=== PATIENT | male | born 1985 | race Caucasian/White ===

== ENCOUNTER 2016-11-26 11:42 | Emergency (ER) | payer OTHER ==
--- NOTE | 2016-11-26 12:06 | CPEKG ---
Heart Rate: 51 RR Interval: 1176 P-R Interval: 128 QRSD Interval: 102 QT Interval: 444 QTC Interval: 409 P [place]: 17 QRS [place]: 49 T Wave [place]: 46 EKG Severity - NORMAL ECG - EKG Impression: SINUS RHYTHM Electronically Signed By: Elder Domingo 26-Nov-2016 13:41:54
--- NOTE | 2016-11-26 12:38 | EDPHY ---
H & P Stated Complaint: HPI/ROS: CHIEF COMPLAINT: Chest pain HISTORY OF PRESENT ILLNESS: Patient complains of sudden onset of chest pain 1 hour prior to arrival. He was at work sitting at his desk. At 1st was on the right side now the left side. It is mild to moderate. No worse with exertion. Does not radiate. No nausea, vomiting, diaphoresis or shortness of breath. He very shortly after began to feel pain and spasms of the hands. He still has some pain and tingling of the left hand. No abdominal complaints. No recent travel or surgery. No history of venous thrombolic event. Nonsmoker. Does not take testosterone. Has no erythema edema or pain of the upper or lower extremities. No bleeding disorders or history of VT in the family. No other associated complaints or modifying factors. REVIEW OF SYSTEMS: Ten systems reviewed and are negative unless otherwise noted in the HPI PAST MEDICAL HISTORY: Denies any medical conditions or medications. SOCIAL HISTORY: Nonsmoker. Works as an senior loan officer here in [place] FAMILY HISTORY: Noncontributory EXAMINATION General Appearance: Alert, no distress Head: normocephalic, atraumatic Eyes: Pupils equal and round, no conjunctival pallor or injection ENT, Mouth: Mucous membranes moist. Uvula midline. Neck: Normal inspection, supple, non-tender Respiratory: Lungs are clear to auscultation. No wheezing, rhonchi or crackles. Cardiovascular: Regular rate and rhythm. No murmur. Pulses intact distally. Gastrointestinal: Abdomen is soft and nontender Back: non-tender, no bony abnormalities Neurological: GCS 15. A&O, nonfocal, normal gait Skin: Warm and dry, no rash. No lacerations abrasions or contusions. Extremities: Nontender, no pedal edema Psychiatric: Mood and affect normal DIFFERENTIAL DIAGNOSES: Including but not limited to anxiety reaction, PE, ACS, pneumonia, costochondritis, chest pain NOS MDM: 12:30 p.m. Chest pain of 1 hour duration. Vital signs are within normal limits. EKG is unremarkable for any ischemia. No VT risk factors. Examination is normal. I have ordered chest x-ray, laboratory studies included a D-dimer. Suspect this is likely anxiety or stress related. He is in no acute distress. 1:30 p.m. Laboratories are negative including D-dimer. Chest x-ray is unremarkable for acute findings. There is mention of possibility of interstitial lung disease on the chest x-ray. I discussed this with the patient as an incidental finding and less likely and reality. We discussed follow-up with pulmonology outpatient for further care. 3:00 p.m. patient has been discharged home stable condition. His troponin was negative. He is resting comfortably at time of discharge. He is to follow up with primary care physician. Return here for any change in the pain, shortness of, exertional pain. SUPERVISION: Patient was evaluated in conjunction with the supervising physician. Please see their note for details. Source: Patient, Family Exam Limitations: No limitations - Personal History Current Tetanus/Diphtheria Vaccine: Unsure - Medical/Surgical History Hx Asthma: No Hx Chronic Respiratory Disease: No Hx Diabetes: No Hx Cardiac Disease: No Hx Renal Disease: No Hx Cirrhosis: No Hx Alcoholism: No Hx HIV/AIDS: No Hx Splenectomy or Spleen Trauma: No Other PMH: denies - Social History Smoking Status: Never smoked Constitutional: Initial Vital Signs Temperature (C) 98.4 F 11/26/16 11:48 Heart Rate 61 11/26/16 11:48 Respiratory Rate 22 H 11/26/16 11:48 Blood Pressure 130/81 H 11/26/16 11:48 O2 Sat (%) 100 11/26/16 11:48 O2 Delivery Mode Room Air Allergies/Adverse Reactions: Penicillins Allergy (Verified 11/26/16 11:48) Home Medications: Medication Instructions Recorded NK [No Known Home Meds] 11/26/16 Medical Decision Making - Diagnostics Imaging Results: Imaging Impressions Chest X-Ray 11/26/16 12:36 Impression: Possible subtle curly B lines versus interstitial lung disease. - Data Points Laboratory Results: Laboratory Results 11/26/16 12:15 11/26/16 12:15 11/26/16 11/26/16 11/26/16 Unknown 12:15 12:15 WBC RBC Hgb Hct MCV MCH MCHC RDW Plt Count D-Dimer 0.30 ug/mLFEU ug/mLFEU (0.00-0.50) Sodium 140 mEq/L mEq/L (134-144) Potassium 4.1 mEq/L mEq/L (3.5-5.2) Chloride 104 mEq/L mEq/L (97-110) Carbon Dioxide 23 mEq/l mEq/l (22-31) Anion Gap 13 mEq/L mEq/L (8-16) BUN 13 mg/dL mg/dL (7-23) Creatinine 0.9 mg/dL mg/dL (0.7-1.3) Estimated GFR > 60 Glucose 76 mg/dL mg/dL (70-100) Calcium 9.3 mg/dL mg/dL (8.5-10.4) Troponin I < 0.012 ng/mL ng/mL (0-0.034) 11/26/16 12:15 WBC 4.80 10^3/uL 10^3/uL (3.80-9.50) RBC 4.97 10^6/uL 10^6/uL (4.40-6.38) Hgb 14.9 g/dL g/dL (13.7-17.5) Hct 44.4 % % (40.0-51.0) MCV 89.3 fL fL (81.5-99.8) MCH 30.0 pg pg (27.9-34.1) MCHC 33.6 g/dL g/dL (32.4-36.7) RDW 11.9 % % (11.5-15.2) Plt Count 197 10^3/uL 10^3/uL (150-400) D-Dimer Sodium Potassium Chloride Carbon Dioxide Anion Gap BUN Creatinine Estimated GFR Glucose Calcium Troponin I Departure - Departure Disposition: Home, Routine, Self-Care Clinical Impression: Chest pain Qualifiers: Chest pain type: unspecified Qualified Code(s): R07.9 - Chest pain, unspecified Condition: Good Instructions: Chest Pain (ED), Chest Wall Pain (ED) Additional Instructions: 1. Follow up with primary care physician 2. Follow up with pulmonology discussed the possibility of interstitial lung disease in the incidental findings on chest x-ray Referrals: Leopoldo Bowden [Primary Care Provider] - As per Instructions Christiano Goel MD [Medical Doctor] - As per Instructions
[2016-11-26 12:52] LABS: HEMATOCRIT 44.4 % (40.0-51.0); HEMOGLOBIN 14.9 g/dL (13.7-17.5); MEAN CELL HEMOGLOBIN CONCENTR. 33.6 g/dL (32.4-36.7); MEAN CELL VOLUME 89.3 fL (81.5-99.8); RED BLOOD CELL COUNT 4.97 10^6/uL (4.40-6.38); RED CELL DISTRIBUTION WIDTH 11.9 % (11.5-15.2)
[2016-11-26 13:08] LABS: ANION GAP 13 mEq/L (8-16); CALCIUM 9.3 mg/dL (8.5-10.4); CARBON DIOXIDE 23 mEq/l (22-31); CHLORIDE 104 mEq/L (97-110); CREATININE 0.9 mg/dL (0.7-1.3); GLOMERULAR FILTRATION RATE > 60; GLUCOSE 76 mg/dL (70-100); POTASSIUM 4.1 mEq/L (3.5-5.2); SODIUM 140 mEq/L (134-144)
[2016-11-26 14:47] VITALS: BP 101/66; PULSE 60; RESP 16; TEMP 98.8; O2SAT 95
== END 2016-11-26 14:46 | disposition home or self-care (01) ==
DX: R07.9 Chest pain, unspecified (principal)